=== PATIENT | female | born 1955 | race Caucasian/White ===

== ENCOUNTER 2024-11-19 03:38 | Inpatient (IN) ==
--- NOTE | 2024-11-19 03:58 | ED Physician Documentation ---
History of Present Illness Stated complaint Stated Complaint: SYNCOPE, N/V/D, LEFT ARM INJURY Chief complaint Chief Complaint: Neuro History obtained from History obtained from: Patient Additonal information Additional information: Patient is a 69-year-old female, history of renal transplant for polycystic kidney disease 2 years ago with [facility]. She states that she started feeling unwell yesterday afternoon. The count to have chills throughout the day. Then developed nausea, vomiting, diarrhea about 6 hours prior to arrival. During the events of vomiting and diarrhea she tried to stand up and felt lightheaded and dizzy and fell back to the floor. Unsure if she lost consciousness or not. This occurred x 2 during the worst part of the vomiting and diarrhea. No chest pain. No shortness of breath. She states initially she had some slight pain in the left shoulder but does not have any pain currently. She states she did hit her head on the floor but is not on blood thinners. She states that she is on medications for the renal transplant including prednisone, mycophenolate. Patient states that she did have a fever earlier, when EMS took her temperature it was normal. Review of Systems Constitutional Reports: Chills Ears, nose, mouth, and throat Denies: Neck pain Cardiovascular Denies: chest pain Respiratory Denies: Cough or Wheezing Gastrointestinal Reports: Abdominal pain (Mild, crampy abdominal pain), Nausea and Vomiting; Denies: Champ blood emesis, Coffee grounds in vomit, Melena or Blood in stool Genitourinary Denies: Painful urination, Urinary frequency or Urinary urgency Musculoskeletal Denies: Back pain or Neck pain Integumentary/Breast Denies: Rash Allergic/Immunologic Denies: Wheezing Meds/Allgy Allergies Allergies Allergy/AdvReac Type Severity Reaction Status Date / Time acetaminophen (From Percocet) Allergy Intermediate Nausea Verified 11/19/24 03:54 aspirin (From Percodan) Allergy Intermediate Nausea Verified 11/19/24 03:54 oxycodone (From Percodan) Allergy Intermediate Nausea Verified 11/19/24 03:54 diazepam AdvReac Mild Unknown Verified 11/19/24 03:54 morphine AdvReac Mild Hives Verified 11/19/24 03:54 [facility] Active Problems All Active Problems (Updated 11/19/24 @ 06:25 by Mj Mitchell MD) Syncope (Acute) Diarrhea (Acute) Vomiting (Acute) Acute kidney injury (Acute) History of kidney transplant (Acute) Surgical History Surgical History (Updated 11/19/24 @ 06:25 by Mj Mitchell MD) Kidney transplant recipient Social History Social History Do you feel safe in your home environment?: Yes History of physical, verbal, emotional, or financial abuse?: No Exam Exam Vital Signs: Vital Signs x48h Temp Pulse Resp BP Pulse Ox 11/19/24 06:39 36.5 C 75 20 106/66 97 11/19/24 05:45 71 20 110/71 94 11/19/24 04:46 74 20 120/68 97 11/19/24 03:46 36.7 C 77 18 98/57 L 94 Constitutional normal general appearance and no apparent distress HENMT normocephalic, head/scalp atraumatic and TMs normal bilaterally Eyes PERRL and EOMs intact bilaterally Neck/C-Spine visual inspection normal, trachea midline, cervical spine nontender and cervical full ROM noted No tenderness to palpation or percussion. No step-off or deformity. Chest inspection of chest normal and palpation of chest normal Respiratory breath sounds equal bilaterally, normal respiratory effort and clear to auscultation bilaterally Cardiovascular normal heart rate noted and regular rhythm noted Gastrointestinal abdomen normal to inspection, abdomen soft to palpation, nontender to palpation, nontender to percussion and nondistended Genitourinary no CVA tenderness Back/Pelvis spine normal to inspection, no thoracic spine tenderness and no lumbar spine tenderness No tenderness to palpation or percussion. No step-off or deformity over the thoracolumbar spine Extremities normal to inspection, no tenderness, full ROM and no deformity Neurology dry cleaning manager II-XII intact and GCS 15 Psychiatry mental status grossly normal and oriented x3 Skin skin color normal Results Vitals Vitals: Vital Signs - 24 hr 11/19/24 03:46 11/19/24 04:46 11/19/24 05:45 Temperature 36.7 C Temperature Source Tympanic Pulse Rate 77 74 71 Respiratory Rate 18 20 20 Blood Pressure 98/57 L 120/68 110/71 O2 Saturation 94 97 94 O2 Source Room air Room air Room air Pain Intensity 0 11/19/24 06:39 Temperature 36.5 C Temperature Source Temporal Artery Scan Pulse Rate 75 Respiratory Rate 20 Blood Pressure 106/66 O2 Saturation 97 O2 Source Room air Pain Intensity Oxygen O2 Source Room air EKG (time done) 0408: EKG releavant findings:: EKG personally interpreted by author of this note. Relevant findings are: Rate: Other ([address] interval, normal QRS, normal ST segments. Normal EKG) Labs Labs: Laboratory Tests 11/19/24 11/19/24 03:44 04:02 WBC 20.2 H RBC 3.36 L Hgb 10.7 L Hct 32.1 L MCV 95.5 MCH 31.8 H MCHC 33.3 RDW 12.2 Plt Count 121 L MPV 11.6 H Neut # (Auto) Not Reportable Lymph # (Auto) Not Reportable Blackford # (Auto) Not Reportable Eos # (Auto) Not Reportable Baso # (Auto) Not Reportable Absolute Nucleated RBC Not Reportable Total Counted 100 Band Neuts % (Manual) 20 H Abnorm Lymph % (Manual) 0 Metamyelocytes % 1 H Myelocytes % 1 H Nucleated RBC % Not Reportable Neutrophils # (Manual) 17.4 H Lymphocytes # (Manual) 1.0 L Monocytes # (Manual) 1.4 H Eosinophils # (Manual) 0.0 Basophils # (Manual) 0.0 Differential Comment MANUAL DIFFERENTIAL WBC Morphology NORMAL APPEARANCE Platelet Estimate DECREASED (<130,000) Platelet Morphology NORMAL APPEARANCE RBC Morph Micro Appear NORMAL APPEARANCE Sodium 135 Potassium 5.0 H Chloride 105 Carbon Dioxide 23 Anion Gap 7.0 BUN 30 H Creatinine 2.1 H Estimated GFR (MDRD) 23 L Glucose 108 H Calcium 8.8 Total Bilirubin 1.9 H AST 19 ALT 14 Alkaline Phosphatase 25 L Troponin I High Sens 5.3 Total Protein 5.8 L Albumin 3.7 Globulin 2.1 Albumin/Globulin Ratio 1.8 Lipase 15 Nasal Adenovirus (PCR) NOT DETECTED Nasal B. parapertussis DNA (PCR) NOT DETECTED Nasal Coronavir 229E PCR NOT DETECTED Nasal Coronavir HKU1 PCR NOT DETECTED Nasal Coronavir NL63 PCR NOT DETECTED Nasal Coronavir OC43 PCR NOT DETECTED Nasal Enterovir/Rhinovir PCR NOT DETECTED Nasal Influenza B PCR NOT DETECTED Nasal Influenza A PCR NOT DETECTED Nasal Parainfluen 1 PCR NOT DETECTED Nasal Parainfluen 2 PCR NOT DETECTED Nasal Parainfluen 3 PCR NOT DETECTED Nasal Parainfluen 4 PCR NOT DETECTED Nasal RSV (PCR) NOT DETECTED Nasal B.pertussis DNA PCR NOT DETECTED Nasal C.pneumoniae (PCR) NOT DETECTED Alberto Human Metapneumo PCR NOT DETECTED Nasal M.pneumoniae (PCR) NOT DETECTED Nasal SARS-CoV-2 (PCR) NOT DETECTED Rads (name of study) head ct, cxr: Relevant Findings:: Final report received PD Medical Decision Making ED course Complexity details: reviewed results, re-evaluated patient, considered differential and d/w patient ED course: No acute findings on chest x-ray or head CT. Has a significantly elevated white blood cell count of over 20,000. Could be reactive to a viral gastroenteritis, but she is continuing to have some abdominal pain, therefore a CT scan was ordered, noncontrast due to her acute kidney injury with a transplanted kidney. This is pending at the time of signout. Once the CT has been read by radiology, the plan will be to contact the [facility] for consultation as she is less than 2 years from her renal transplant with an acute kidney injury, likely secondary to dehydration and her recent illness. She received 2 L of IV fluid here. Awaiting a urinalysis as well. Respiratory PCR is negative. Patient will be signed out to Dr. Goel for follow-up of these tests and consultation with nephrology. Discharge Plan Discharge Clinical Impression: History of kidney transplant, Acute kidney injury Vomiting Qualifiers: Vomiting type: unspecified Nausea presence: with nausea Qualified Code(s): R11.2 - Nausea with vomiting, unspecified Diarrhea Qualifiers: Diarrhea type: unspecified type Qualified Code(s): R19.7 - Diarrhea, unspecified Syncope Qualifiers: Syncope type: unspecified Qualified Code(s): R55 - Syncope and collapse Print Language: Micronesian Stand Alone Forms: PCP List
[2024-11-19] MEDS: SODIUM CHLORIDE 0.9% 1,000 ML IV STA ×2 (04:07→05:09)
[2024-11-19 04:08] LABS: RED CELL DISTRIBUTION WIDTH 12.2 % (12.0-15.0)
[2024-11-19 04:13] LABS: HCT - HEMATOCRIT 32.1 % (37.0-47.0); HGB - HEMOGLOBIN 10.7 g/dL (12.0-16.0); MEAN PLATELET VOLUME 11.6 fL (7.9-10.8)
[2024-11-19 04:16] LABS: PLT - PLATELET COUNT 121 10^3/uL (130-450)
[2024-11-19 04:18] LABS: ABNORMAL LYMPHS % (MANUAL) 0 %; BASOPHILS # (MANUAL) 0.0 10^3/uL (0-0.1); EOSINOPHILS # (MANUAL) 0.0 10^3/uL (0-0.7)
[2024-11-19 04:24] LABS: ALT ALANINE AMINOTRANSFERASE 14.0 IU/L (10-60); AST ASPARTATE AMINOTRANSFERASE 19.0 IU/L (10-42); BUN - BLOOD UREA NITROGEN 30.0 mg/dL (6-20); CARBON DIOXIDE - CO2 23.0 mmol/L (21-32); CREATININE 2.1 mg/dL (0.6-1.3); GFR - MDRD 23.0 (>89)
[2024-11-19 04:28] LABS: TROPONIN I HIGH SENSITIVITY 5.3 ng/L (2.3-14.8)
[2024-11-19 04:44] LABS: BAND NEUTROPHILS % (MANUAL) 20 %; LYMPHOCYTES # (MANUAL) 1.0 10^3/uL (1.5-3.5); LYMPHOCYTES % (MANUAL) 5 %; METAMYELOCYTES % (MANUAL) 1 %; MONOCYTES # (MANUAL) 1.4 10^3/uL (0.0-1.0); MYELOCYTES % (MANUAL) 1 %; NEUTROPHILS # (MANUAL) 17.4 10^3/uL (1.5-6.6); PLATELET ESTIMATE, MANUAL DECREASED (<130,000) (NORMAL); PLATELET MORPHOLOGY NORMAL APPEARANCE (NORMAL); RBC MORPHOLOGY (MULTIPLE) NORMAL APPEARANCE (NORMAL); WBC MORPHOLOGY (MULTIPLE) NORMAL APPEARANCE (NORMAL)
[2024-11-19 05:00] LABS: B. PARAPERTUSSIS- RESP PCR PAN NOT DETECTED; B. PERTUSSIS- RESP PCR PANEL NOT DETECTED; C. PNEUMONIAE- RESP PCR PANEL NOT DETECTED; CORONAVIRUS 229E-RESP PCR NOT DETECTED; CORONAVIRUS HKU1-RESP PCR NOT DETECTED; CORONAVIRUS NL63-RESP PCR NOT DETECTED; CORONAVIRUS OC43-RESP PCR NOT DETECTED; HUMAN METAPNEUMOVIRUS NOT DETECTED; INFLUENZA A- RESP PCR PANEL NOT DETECTED; INFLUENZA B - RESP PCR PANEL NOT DETECTED; M. PNEUMONIAE- RESP PCR PANEL NOT DETECTED; PARAINFLUENZA VIRUS 1 NOT DETECTED; PARAINFLUENZA VIRUS 2 NOT DETECTED; PARAINFLUENZA VIRUS 4 NOT DETECTED; RHINOVIRUS/ENTEROVIRUS NOT DETECTED; RSV- RESP PCR PANEL NOT DETECTED; SARS-CoV-2 -RESP PCR PANEL NOT DETECTED
--- NOTE | 2024-11-19 07:11 | ED Physician Documentation ---
ED Addendum Addendum Addendum: Patient was handed off to me at [address] Chaka Mitchell. Briefly this is a six 9-year-old female with history of polycystic kidney disease and renal transplant roughly 2 years ago. Presented with multiple days of nausea, vomiting, diarrhea. Was unable to take antirejection medications for a few doses over the last couple days as a result of this. Workup today with normal UA. Elevated white count to 20, and new FARA from baseline of 1.3 to 2.1. Eventually I was able to talk to [facility] nephrology, who recommended mission here at our hospital, with transfer to their facility if she tends to go into her worst direction. They felt that given story likely prerenal in setting of viral gastroenteritis. Patient was admitted to the floor during my shift, and boarding at time of my signout. Handed off to Dr. Jasbir Mcpherson. Discharge Plan Discharge Patient Disposition: 68 [facility] DC/Xfer Condition: Good Clinical Impression: History of kidney transplant, Acute kidney injury Vomiting Qualifiers: Vomiting type: unspecified Nausea presence: with nausea Qualified Code(s): R11.2 - Nausea with vomiting, unspecified Diarrhea Qualifiers: Diarrhea type: unspecified type Qualified Code(s): R19.7 - Diarrhea, unspecified Syncope Qualifiers: Syncope type: unspecified Qualified Code(s): R55 - Syncope and collapse Prescriptions: No Action tacrolimus [Prograf] 1 mg capsule 2 mg PO Q12H tacrolimus [Prograf] 0.5 mg capsule 0.5 mg PO Q12H mycophenolate sodium [Myfortic] 360 mg tablet,delayed release (DR/EC) 720 mg PO BID prednisone 5 mg tablet 5 mg PO DAILY sulfamethoxazole-trimethoprim [Bactrim] 400-80 mg tablet 1 tab PO DAILY valganciclovir 450 mg PO BID famotidine 20 mg tablet 20 mg PO BID hydromorphone 2 mg tablet 2 mg PO ONCE PRN (Reason: as needed for moderate or severe pain) polyethylene glycol 3350 [ClearLax] 17 gram/dose powder 17 g PO DAILY PRN (Reason: constipation) sennosides-docusate sodium [Colace 2-In-1] 8.6-50 mg tablet 1 tab-cap PO DAILY calcium citrate-vitamin D2 315 mg-200 unit tablet 1 tab PO BID citalopram [Celexa] 20 mg tablet 20 mg PO DAILY magnesium oxide 400 mg magnesium capsule 400 mg PO DAILY biotin 10,000 mcg capsule 10,000 mcg PO DAILY propranolol 10 mg tablet 10 mg PO BID folic acid 1 mg tablet 1 mg PO DAILY Print Language: Macedonian
--- NOTE | 2024-11-19 07:46 | CT Report ---
PROCEDURE: CT Abdomen/Pelvis WO INDICATIONS: abd pain, vomiting TECHNIQUE: A CT scan of the abdomen and pelvis was performed without the use of intravenous contrast. Images were recorded and evaluated at appropriate window settings. Reformats: coronal and sagittal. For radiation dose reduction, the following was used: automated exposure control, adjustment of mA and/or kV according to patient size. COMPARISON: None. FINDINGS: Image quality: Diagnostic. Lower chest: Dependent atelectasis are noted in bilateral lung bases. Heart size is enlarged. No significant pericardial effusion. Liver: No innumerable well-circumscribed hypodense areas are seen scattered throughout the liver parenchyma and measures fluid density likely represent hepatic cysts. No definite solid appearing hepatic lesions. Gallbladder: Gallbladder is surgically absent. Biliary tree: No intrahepatic or extrahepatic dilation, accounting for age. Spleen: No splenomegaly. Pancreas: No pancreatic ductal dilation. Adrenals: No adrenal nodule. Kidneys and ureters: Numerous cysts are noted scattered throughout bilateral renal parenchyma suggestive of polycystic kidney disease. Few scattered calcifications are noted in bilateral renal parenchyma suggestive of nonobstructing stones versus vascular calcifications. Underlying solid lesion cannot be entirely excluded. No hydronephrosis or obstructing stones. No hydroureter. Transplant kidney is noted in left iliac fossa and show no hydronephrosis or gross solid appearing renal lesion. Stomach, bowel and peritoneum: There is no bowel obstruction. Liquid stool is noted within the colon and is consistent with the clinical history of diarrhea. No abnormal bowel wall thickening or mesenteric fat stranding. Colonic diverticulosis without CT evidence of acute diverticulitis. No abscess col lection. No free fluid or free air. Lymph nodes: No central or retroperitoneal adenopathy. Vessels: No infrarenal aortic aneurysm. Reproductive organs: Unremarkable. Bladder: No abnormal bladder wall thickening. No calcified bladder stones. Pelvic lymph nodes: No adenopathy by size criteria. Bones: No aggressive osseous abnormality. Other: No significant ventral or inguinal hernia. IMPRESSION: 1. Findings consistent with polycystic kidney disease with transplant kidney in left lower quadrant. No obstructing stones or hydronephrosis. No definite solid- appearing renal lesion. 2. Numerous cysts are seen scattered in the liver parenchyma. No obvious solid appearing hepatic lesion. 3. Liquid stool which is consistent with clinical history of diarrhea. No bowel obstruction or abnormal bowel wall thickening. No free fluid or free air. 4. Other chronic incidental findings as above. No significant discrepancies from preliminary reading. Reviewed by: Lewis Patricio MD on 11/19/2024 7:43 AM PDT Approved by: Lewis Patricio MD on 11/19/2024 7:43 AM PDT Station ID: [id number]
--- NOTE | 2024-11-19 07:47 | CT Report ---
PROCEDURE: CT Head WO INDICATIONS: fall, head injury TECHNIQUE: CT of the head was performed, without intravenous contrast. Reformats: Coronal and sagittal. For radiation dose reduction, the following was used: automated exposure control, adjustment of mA and/or kV according to patient size. COMPARISON: None. FINDINGS: Image quality: Diagnostic. CSF spaces: Basal cisterns are patent. No extra-axial fluid collections. Ventricles are normal in size and shape. Brain: No midline shift. No intracranial mass effect or hemorrhage. Mast- white matter interface is normal. Age appropriate volume loss and periventricular white matter hypoattenuation, likely chronic ischemic change. Skull and face: Calvarium and visualized facial bones are intact, without suspicious lesions. Sinuses: Visualized sinuses and mastoids are clear. IMPRESSION: No acute intracranial pathology. Findings are concordant with preliminary interpretation provided by [facility]. Reviewed by: Lewis Patricio MD on 11/19/2024 7:44 AM PDT Approved by: Lewis Patricio MD on 11/19/2024 7:44 AM PDT Station ID: [id number]
--- NOTE | 2024-11-19 08:04 | XRAY Report ---
PROCEDURE: XR Chest 1V INDICATIONS: Chest Pain TECHNIQUE: One view of the chest was acquired. COMPARISON: None. FINDINGS: Surgical changes and devices: None. Lungs and pleura: No pleural effusions or pneumothorax. No consolidation. Mediastinum: Mediastinal contours appear normal. Heart size is normal. Bones and chest wall: No suspicious bony lesions. Overlying soft tissues appear unremarkable. IMPRESSION: No acute cardiopulmonary process. Findings are concordant with preliminary interpretation provided by [facility]. Reviewed by: Monty Pichardo MD on 11/19/2024 8:00 AM PDT Approved by: Monty Pichardo MD on 11/19/2024 8:00 AM PDT Station ID: [id number]
[2024-11-19 10:54] LABS: GLUCOSE, URINE (UA) NEGATIVE (NEGATIVE); KETONES,URINE (UA) NEGATIVE (NEGATIVE); OCCULT BLOOD,URINE NEGATIVE (NEGATIVE)
[2024-11-19] MEDS ORDERED: ONDANSETRON 4 MG/2 ML VIAL IVP PRN (16:29)
[2024-11-19] MEDS ORDERED: ONDANSETRON ODT 4 MG TABLET TL PRN (16:29)
--- NOTE | 2024-11-19 17:00 | HISTORY & PHYSICAL EXAMINATION ---
Chief Complaint Chief Complaint Chief Complaint: Nausea, vomiting, diarrhea History of Present Illness Admitted From Admitted From:: Home History Obtained From Records Reviewed: EMR History obtained from: Patient Exam Limitations: None History of Present Illness HPI Comment/Other: Patient is a 69-year-old female with a history of polycystic kidney disease s/p donor transplant completed in 2022 who presents for intractable nausea, vomiting, diarrhea. Per patient, and patient's daughter at bedside, she was at home, and started having episodes of his loose, watery stool. She also had an episode of nausea, and 2 episodes of nonbloody, nonbilious emesis. She describes the stool as watery, and she feels as if she has no control over it. The only time this has ever happened in the past, was immediately after her renal transplant when she had COVID. After these episodes diarrhea, she felt lightheaded, dizzy, and had a syncopal episode. Prior to the EMS getting there, she had another episode of syncope. She endorses dizziness and lightheadedness prior to her passing out. She does not recall eating anything out of the ordinary. Her family ate the same things, and have not had any symptoms. Past medical history is only significant for polycystic kidney disease with a donor transplant that occurred in 2022. Medications include mycophenolate, prednisone, tacrolimus. Allergies include hives to morphine. Surgical history includes renal transplant. Social history includes occasional alcohol use. No tobacco use, no recreational drug use. Lives with her daughter. Recently retired, worked at a bank for many years. In the ER, patient had a soft blood pressure here -blood pressure was 98/57, heart rate was 77, she was afebrile, saturating 94% on room air. Her heart rate was 77. Lab work showed a leukocytosis of 20.2. Her hemoglobin was 10.7. Her creatinine was elevated at 2.1, and her baseline is usually normal. Her UA was negative for any infection. Respiratory viral panel was also negative for any infection. C. difficile was negative. Meds/Allgy Home Medications Ambulatory Orders Medication Instructions Recorded Confirmed biotin 10,000 mcg capsule 10,000 mcg PO DAILY 11/19/24 11/19/24 calcium 315 mg (as 1 tab PO BID 11/19/24 citrate)-ergocalciferol (vit D2) 200 unit tablet citalopram 20 mg tablet (Celexa) 20 mg PO DAILY 11/19/24 famotidine 20 mg tablet 20 mg PO BID 11/19/24 folic acid 1 mg tablet 1 mg PO DAILY 11/19/2411/19 magnesium oxide 400 mg PO DAILY 11/19/24 mycophenolate sodium 180 mg 180 mg PO BID 11/19/24 tablet,delayed release prednisone 5 mg tablet 5 mg PO DAILY 11/19/2411/19 propranolol 10 mg tablet 10 mg PO BID 11/19/24 sulfamethoxazole 400 1 tab PO DAILY 11/19/2410/29 mg-trimethoprim 80 mg tablet (Bactrim) Held on 11/19/24. Instructions: Per Patient tacrolimus 0.5 mg capsule, 0.5 mg PO Q12H 11/19/24 immediate-release (Prograf) tacrolimus 1 mg capsule, 2 mg PO Q12H 11/19/24 immediate-release (Prograf) valganciclovir 450 mg PO BID 11/19/2411/19 Held on 11/19/24. Instructions: Per Patient Allergies Allergies Allergy/AdvReac Type Severity Reaction Status Date / Time acetaminophen (From Percocet) Allergy Intermediate Nausea Verified 11/19/24 03:54 aspirin (From Percodan) Allergy Intermediate Nausea Verified 11/19/24 03:54 oxycodone (From Percodan) Allergy Intermediate Nausea Verified 11/19/24 03:54 diazepam AdvReac Mild Unknown Verified 11/19/24 03:54 morphine AdvReac Mild Hives Verified 11/19/24 03:54 PFSH Active Problems All Active Problems Viral gastroenteritis (Acute) Syncope (Acute) Diarrhea (Acute) Vomiting (Acute) Acute kidney injury (Acute) History of kidney transplant (Acute) Surgical History Surgical History Kidney transplant recipient Social History Social History Smoking Status: Never smoker Second hand tobacco smoke exposure: Yes Do you dip or chew tobacco?: No Do you vape?: No Level: Independent Do you feel safe in your home environment?: Yes History of physical, verbal, emotional, or financial abuse?: No POLST Patient has POLST: No POLST CPR Status: Attempt Resuscitation (CPR) Level of Medical Intervention: Full Treatment Review of Systems Constitutional Reports: Chills, Weakness and Poor appetite; Denies: Fatigue, Fever or Malaise Eyes Denies: Pain, Irritation, Blurry vision, Vision loss, Diplopia or Eye discomfort Ears, nose, mouth, and throat Denies: Ear pain, Hearing loss, Tinnitus, Nose bleeds or Nasal discharge Cardiovascular Reports: Syncope; Denies: Irregular heart rate, chest pain, palpitations, edema or shortness of breath with exertion Respiratory Denies: Shortness of breath, Cough, Sputum production or Wheezing Gastrointestinal Reports: Abdominal pain, Nausea, Vomiting, Diarrhea, Change in bowel habits and Change in stool character; Denies: Abdominal distention, Heartburn or Constipation Genitourinary Denies: Painful urination, Urinary frequency or Urinary urgency Musculoskeletal Denies: Back pain Integumentary/Breast Denies: Rash, Itching, Dryness, Redness or Skin pain Neurological Reports: General weakness and Dizziness; Denies: Headache, Weakness in extremities, Numbness in extremities or Abnormal gait Psychiatric Denies: Depression, Anxiety, Mood swings or Panic attacks Endocrine Denies: Excessive urination, Excessive thirst or Fatigue Hematologic/Lymphatic Denies: Anemia, Easy bruising or Easy bleeding Allergic/Immunologic Denies: Hives, Tongue swelling, Facial swelling or Wheezing Prior Level of Functionality: Independent of ADLs. Exam Exam Vital Signs: Vital Signs x48h Temp Pulse Resp BP Pulse Ox 11/20/24 13:00 97.9 F 58 L 14 125/65 97 11/20/24 07:34 98.6 F 61 16 129/75 96 Constitutional normal general appearance, no apparent distress, average body habitus and no limitations HENMT normocephalic, head/scalp atraumatic and hearing grossly normal bilaterally Eyes PERRL, EOMs intact bilaterally and conjunctivae normal Neck/C-Spine visual inspection normal, trachea midline and cervical spine nontender Chest inspection of chest normal Respiratory breath sounds equal bilaterally, normal respiratory effort, clear to auscultation bilaterally, no wheezes, no rales and no retractions Cardiovascular normal heart rate noted, regular rhythm noted, no gallop, no rub and no murmur Gastrointestinal abdomen normal to inspection, abdomen soft to palpation and normoactive bowel sounds Mildly tender to palpation diffusely Genitourinary no CVA tenderness and bladder normal to palpation Back/Pelvis spine normal to inspection, no thoracic spine tenderness and no lumbar spine tenderness Extremities normal to inspection, normal to palpation, no tenderness and full ROM Neurology no movement abnormality noted and no focal motor deficit noted Psychiatry mental status grossly normal, oriented x3, thought process normal, cooperative and affect normal Skin skin color normal, no rash, no lesions and no wounds Conclusion/Plan Problem List (1) Viral gastroenteritis: Plan: Patient presents with less than 24 hours of nausea, vomiting, loose stools. Improving. Respiratory viral panel is negative. C. difficile is negative. Stool studies are ordered, pending. Patient does have a leukocytosis. Afebrile. Monitor off antibiotics at this time. Continue aggressive IV fluid rehydration with LR at 100 cc/h. Continue Zofran as needed for nausea. (2) Acute kidney injury: Plan: Likely prerenal due to GI losses. Creatinine baseline of 1.4. Currently at 2.1. ER did speak with transplant nephrology, and recommends admission here for observation and rehydration. If worsens, will call them once again. (3) Syncope: Plan: Likely vasovagal due to above. Patient has no cardiac history. Echo has been ordered, pending. Continue telemetry while here. Qualifiers: Syncope type: unspecified Qualified Code(s): R55 - Syncope and collapse (4) History of kidney transplant: Plan: Continue mycophenolate, prednisone, tacrolimus. Lab Results Lab results reviewed: Yes 11/20/24 07:43 11/20/24 07:43 Diagnostic Imaging Results Diagnostic Imaging Results: positive Final report reviewed EKG Results EKG Interpreted Independently: Yes Core Measures Anticipated LOS I expect patient to be DC'd or transferred within 96 hours.: Yes DVT/VTE - Prophylaxis VTE/DVT Device ordered at admit?: No VTE/DVT Prophylaxis med ordered at admit?: Yes
[2024-11-19] MEDS ORDERED: SODIUM CHLORIDE FLUSH 0.9% 10 ML SYRINGE IVP PRN (17:06)
[2024-11-19] MEDS ORDERED: ACETAMINOPHEN 325 MG TABLET PO PRN (17:06)
--- NOTE | 2024-11-19 17:21 | PHARMACY PROGRESS NOTE ---
Best Possible Medication History Admit Date and Time: 11/19/24 [id number] Home Medications Medication Instructions Recorded Confirmed Type biotin 10,000 mcg capsule 10,000 mcg PO DAILY 11/19/24 11/19/24 History calcium 315 mg (as 1 tab PO BID 11/19/24 History citrate)-ergocalciferol (vit D2) 200 unit tablet citalopram 20 mg tablet (Celexa) 20 mg PO DAILY 11/19/24 History famotidine 20 mg tablet 20 mg PO BID 11/19/24 History folic acid 1 mg tablet 1 mg PO DAILY 11/19/2411/19 History magnesium oxide 400 mg PO DAILY 11/19/24 History mycophenolate sodium 360 mg 720 mg PO BID 11/19/24 History tablet,delayed release (Myfortic) prednisone 5 mg tablet 5 mg PO DAILY 11/19/2411/19 History propranolol 10 mg tablet 10 mg PO BID 11/19/24 History sennosides 8.6 mg-docusate sodium 1 tab-cap PO DAILY 0 11/19/24 11/19/24 History 50 mg tablet (Colace 2-In-1) sulfamethoxazole 400 1 tab PO DAILY 11/19/2410/29 History mg-trimethoprim 80 mg tablet (Bactrim) Held on 11/19/24. Instructions: Per Patient tacrolimus 0.5 mg capsule, 0.5 mg PO Q12H 11/19/24 History immediate-release (Prograf) tacrolimus 1 mg capsule, 2 mg PO Q12H 11/19/24 History immediate-release (Prograf) valganciclovir 450 mg PO BID 11/19/2411/19 History Held on 11/19/24. Instructions: Per Patient Processed by: Pharmacy (Medication reconciliation completed by [employer]) Medications reviewed in ED?: Yes Medication History completed: Yes Patient Interview: Completed Secondary Source(s): Written medication list [facility] [place] Statement: As the person ultimately responsible for medication therapy, providers are able to order a medication from an existing home medication list in [facility] via the "Reconcile Routine" prior to Confirmation of that medication by lab support service tech. Such practice is discouraged except when the physician, in their clinical judgment, deems that a medical need exists for a medication without regard to previous use.
[2024-11-19] MEDS: TACROLIMUS 0.5 MG CAPSULE PO SCH ×2 (18:05→18:12)
[2024-11-19] MEDS: LACTATED RINGERS 1,000 ML IV SCH (18:05)
[2024-11-19] MEDS: SODIUM CHLORIDE FLUSH 0.9% 10 ML SYRINGE IVP SCH (18:06)
[2024-11-19] MEDS: PROPRANOLOL 10 MG TABLET PO SCH (20:11)
[2024-11-19] MEDS: FAMOTIDINE 20 MG TABLET PO SCH (20:11)
[2024-11-19] MEDS: HEPARIN 5,000 UNIT/ML VIAL SUBQ SCH (20:11)
[2024-11-19] MEDS: MYCOPHENOLATE 180 MG PO SCH (20:13)
[2024-11-19] MEDS ORDERED: VALGANCICLOVIR 450 MG PO SCH (21:00)
[2024-11-19] MEDS ORDERED: MYCOPHENOLATE SODIUM 180 MG PO SCH (21:00)
[2024-11-20] MEDS: MAGNESIUM OXIDE 400 MG TABLET PO SCH (07:35)
[2024-11-20 07:51] LABS: HCT - HEMATOCRIT 29.6 % (37.0-47.0); HGB - HEMOGLOBIN 9.9 g/dL (12.0-16.0); MEAN PLATELET VOLUME 11.1 fL (7.9-10.8); PLT - PLATELET COUNT 114.0 10^3/uL (130-450); RED CELL DISTRIBUTION WIDTH 12.4 % (12.0-15.0)
[2024-11-20 08:13] LABS: BUN - BLOOD UREA NITROGEN 21.0 mg/dL (6-20); CARBON DIOXIDE - CO2 24.0 mmol/L (21-32); CREATININE 1.5 mg/dL (0.6-1.3); GFR - MDRD 35.0 (>89)
[2024-11-20] MEDS ORDERED: SENNOSIDES DOCUSATE SODIUM PO SCH (09:00)
[2024-11-20] MEDS ORDERED: BIOTIN 10000 MCG PO SCH (09:00)
[2024-11-20] MEDS: CALCIUM CARB (OYSTER SHELL) 500 MG TABLET PO SCH (09:34)
[2024-11-20] MEDS: CITALOPRAM HYDROBROMIDE 20 MG TABLET PO SCH (09:34)
[2024-11-20] MEDS: CHOLECALCIFEROL 400 UNIT TABLET PO SCH (09:34)
[2024-11-20] MEDS: FOLIC ACID 1 MG TABLET PO SCH (09:34)
--- NOTE | 2024-11-20 12:25 | PROVIDER PROGRESS NOTE ---
Subjective Subjective Subjective: This morning, patient is doing to feel better. She is still having some loose stools, but she states they are decreasing in size and frequency. She denies any lightheaded or dizziness. She is tolerating p.o. intake well. She denies any nausea or vomiting. Diet: Regular Dispo: Home on discharge DVT: Heparin subq Code: Full code Current Medications Current Medications Current Medications: Current Medications Generic Name Dose Route Start Last Admin Trade Name Freq PRN Reason Stop Dose Admin Acetaminophen 650 mg 11/19/24 17:06 Acetaminophen 325 Mg Tablet PO Q4HR PRN Pain 1 to 4, or Fever Calcium Carbonate/Glycine 500 mg 11/20/24 09:00 11/20/24 09:34 Calcium Carb (Oyster Shell) 500 Mg Tablet PO 500 mg DAILY KACIE Administration Cholecalciferol 400 unit 11/20/24 09:00 11/20/24 09:34 Cholecalciferol 400 Unit Tablet PO 400 unit DAILY KACIE Administration Citalopram Hydrobromide 20 mg 11/20/24 09:00 11/20/24 09:34 Citalopram Hydrobromide 20 Mg Tablet PO 20 mg DAILY KACIE Administration Famotidine 20 mg 11/19/24 21:00 11/20/24 09:34 Famotidine 20 Mg Tablet PO 20 mg BID KACIE Administration Folic Acid 1 mg 11/20/24 09:00 11/20/24 09:34 Folic Acid 1 Mg Tablet PO 1 mg DAILY KACIE Administration Heparin Sodium (Porcine) 5,000 unit 11/19/24 21:00 11/20/24 09:34 Heparin 5,000 Unit/Ml Vial SUBQ 5,000 unit BID KACIE Administration Lactated Ringer's 1,000 mls @ 100 mls/hr 11/19/24 17:06 11/20/24 03:45 Lr IV 100 mls/hr .Q10H KACIE Administration Magnesium Oxide 400 mg 11/20/24 08:00 11/20/24 07:35 Magnesium Oxide 400 Mg Tablet PO 400 mg DAILYWM KACIE Administration Ondansetron HCl 4 mg 11/19/24 16:29 Ondansetron Odt 4 Mg Tablet TL Q8HR PRN nausea Ondansetron HCl 4 mg 11/19/24 16:29 Ondansetron 4 Mg/2 Ml Vial IVP Q6HR PRN Nausea Mycophenolate 180mg 1 each 11/19/24 21:00 11/20/24 09:38 Dr Tablet PO 1 each BID KACIE Administration Polyethylene Glycol 17 gm 11/19/24 17:26 Polyethylene Glycol 3350 17 Gm Packet PO DAILY PRN constipation Prednisone 5 mg 11/20/24 09:00 11/20/24 09:34 Prednisone 5 Mg Tablet PO 5 mg DAILY KACIE Administration Propranolol HCl 10 mg 11/19/24 21:00 11/20/24 09:34 Propranolol 10 Mg Tablet PO 10 mg BID KACIE Administration Sodium Chloride 10 ml 11/19/24 17:06 Sodium Chloride Flush 0.9% 10 Ml Syringe IVP PRN PRN NEEDED PER PROVIDER ORDERS Sodium Chloride 10 ml 11/19/24 17:06 11/20/24 09:34 Sodium Chloride Flush 0.9% 10 Ml Syringe IVP 10 ml 0100,0900,1700 KACIE Administration Tacrolimus 2.5 mg 11/19/24 17:06 11/20/24 07:35 Tacrolimus 0.5 Mg Capsule PO 2.5 mg Q12H KACIE Administration Objective Vital Signs/Intake & Output Reviewed Vital Signs: Yes Vital Signs: Vital Signs x48h Temp Pulse Resp BP Pulse Ox 11/20/24 07:34 98.6 F 61 16 129/75 96 11/20/24 05:17 98.6 F 60 18 118/68 97 Intake & Output: Intake & Output 11/17/24 11/18/24 11/19/24 11/20/24 23:59 23:59 23:59 23:59 Intake Total 2580 / 2580 1087 / 1087 Balance 2580 / 2580 1087 / 1087 Weight (kg) 76 kg Objective General Appearance: positive No acute distress and Alert; negative Anxious Eyes Bilateral: positive Normal inspection, PERRL and EOMI ENT: positive ENT inspection nml, Pharynx nml and No signs of dehydration Neck: positive Nml inspection, Thyroid nml and No JVD Respiratory: positive Chest non-tender, No respiratory distress and Breath sounds nml; negative Wheezes, Rales or Rhonchi Cardiovascular: positive Regular rate & rhythm, No murmur and No gallop; negative Tachycardia or Systolic murmur Abdomen: positive Non-tender, No organomegaly and No distention; negative Guarding or Splenomegaly Back: positive Nml inspection; negative CVA tenderness (R) or CVA tenderness (L) Skin: positive Color nml, No rash, Warm and Dry Extremities: positive Non-tender, Full ROM, Nml appearance and No pedal edema Neurologic/Psychiatric: positive Oriented x3, Motor nml and Mood/affect nml Lab Results 11/20/24 07:43 11/20/24 07:43 Other Labs: Lab Results x24hrs 11/20/24 Range/Units 07:43 WBC 13.1 H (4.8-10.8) x10^3/uL RBC 3.08 L (4.20-5.40) 10^6/uL Hgb 9.9 L (12.0-16.0) g/dL Hct 29.6 L (37.0-47.0) % MCV 96.1 (81.0-99.0) fL MCH 32.1 H (27.0-31.0) pg MCHC 33.4 (32.0-36.0) g/dL RDW 12.4 (12.0-15.0) % Plt Count 114 L (130-450) 10^3/uL MPV 11.1 H (7.9-10.8) fL Sodium 139 (135-145) mmol/L Potassium 3.9 (3.5-4.5) mmol/L Chloride 110 (101-111) mmol/L Carbon Dioxide 24 (21-32) mmol/L Anion Gap 5.0 L (6-13) BUN 21 H (6-20) mg/dL Creatinine 1.5 H (0.6-1.3) mg/dL Estimated GFR (MDRD) 35 L (>89) Glucose 91 (74-104) mg/dL Calcium 8.8 (8.5-10.3) mg/dL Assessment/Plan Problem List (1) Viral gastroenteritis: Impression: Patient presents with less than 24 hours of nausea, vomiting, loose stools. Improving. Respiratory viral panel is negative. C. difficile is negative. Stool studies are ordered, pending. Patient did have a leukocytosis which is improving without antibioitcs. Afebrile. Continue to monitor off antibiotics at this time. Continue aggressive IV fluid rehydration with LR at 100 cc/h. Continue Zofran as needed for nausea. (2) Acute kidney injury: Impression: Likely prerenal due to GI losses. Creatinine when last checked was 1.4 in September. Admitted with creatinine of 2.1. With ongoing GI losses, and concern for worsening dehydration, patient will need 24 hours more of IVF and rehydration. ER did speak with transplant nephrology, and recommends admission here for observation and rehydration. If worsens, will call them once again. (3) Syncope: Impression: Likely vasovagal due to above. Patient has no cardiac history. Echo has been ordered, pending. Continue telemetry while here. Qualifiers: Syncope type: unspecified Qualified Code(s): R55 - Syncope and collapse (4) History of kidney transplant: Impression: DDA in 2022 due to polycystic kidney disease. Continue mycophenolate, prednisone, tacrolimus.
[2024-11-20] MEDS: TACROLIMUS 0.5 MG CAPSULE PO SCH (20:14)
[2024-11-21 06:29] LABS: HCT - HEMATOCRIT 30.0 % (37.0-47.0); HGB - HEMOGLOBIN 9.8 g/dL (12.0-16.0); MEAN PLATELET VOLUME 11.7 fL (7.9-10.8); PLT - PLATELET COUNT 112.0 10^3/uL (130-450); RED CELL DISTRIBUTION WIDTH 12.0 % (12.0-15.0)
[2024-11-21 06:45] LABS: BUN - BLOOD UREA NITROGEN 14.0 mg/dL (6-20); CARBON DIOXIDE - CO2 25.0 mmol/L (21-32); CREATININE 1.3 mg/dL (0.6-1.3); GFR - MDRD 41.0 (>89)
--- NOTE | 2024-11-21 08:13 | Discharge Summary ---
Discharge Summary Admit Date: 11/19/24 Discharge Date: 11/21/24 Discharging Provider: Dr. Beverly Watts Code Status: Attempt Resuscitation Discharge Facility Name: Home, Self Care DIAGNOSES Discharge Diagnoses with Status of Each Condition: Viral gastroenteritispatient presented with less than 24 hours of nausea, vomiting, loose stools. Respiratory viral panel negative, C. difficile negative. Stool studies remain pending. Presented with leukocytosis, which is now resolved. Diarrhea is also resolving; she has had just a couple, which are more formed. Advised to continue adequate oral hydration at home. Acute kidney injuryresolved. Admitted with a creatinine of 2.1, baseline was around 1.4. This is likely prerenal due to dehydration. After 2 days of adequate IV rehydration, back to baseline is at 1.3. Syncopelikely vasovagal due to above. History of kidney transplantDDA in 2022 due to polycystic kidney disease. Continue mycophenolate, prednisone, tacrolimus. HPI History of Present Illness: Patient is a 69-year-old female with a history of polycystic kidney disease s/p donor transplant completed in 2022 who presents for intractable nausea, vomiting, diarrhea. Per patient, and patient's daughter at bedside, she was at home, and started having episodes of his loose, watery stool. She also had an episode of nausea, and 2 episodes of nonbloody, nonbilious emesis. She describes the stool as watery, and she feels as if she has no control over it. The only time this has ever happened in the past, was immediately after her renal transplant when she had COVID. After these episodes diarrhea, she felt lightheaded, dizzy, and had a syncopal episode. Prior to the EMS getting there, she had another episode of syncope. She endorses dizziness and lightheadedness prior to her passing out. She does not recall eating anything out of the ordinary. Her family ate the same things, and have not had any symptoms. Past medical history is only significant for polycystic kidney disease with a donor transplant that occurred in 2022. Medications include mycophenolate, prednisone, tacrolimus. Allergies include hives to morphine. Surgical history includes renal transplant. Social history includes occasional alcohol use. No tobacco use, no recreational drug use. Lives with her daughter. Recently retired, worked at a bank for many years. In the ER, patient had a soft blood pressure here -blood pressure was 98/57, heart rate was 77, she was afebrile, saturating 94% on room air. Her heart rate was 77. Lab work showed a leukocytosis of 20.2. Her hemoglobin was 10.7. Her creatinine was elevated at 2.1, and her baseline is usually normal. Her UA was negative for any infection. Respiratory viral panel was also negative for any infection. C. difficile was negative. HOSPITAL COURSE Hospital Course: Patient is a 69-year-old female with a history of polycystic kidney disease s/p donor allograft who presents with intractable nausea and vomiting and diarrhea over the past 24 hours. When admitted, her creatinine was elevated 2.1, and her baseline is around 1.4. She received 2 days of IV hydration, and her creatinine improved to 1.3. After one day of IV hydration, she was still not tolerating p.o. intake well, and was unable to keep things down. Her nausea and vomiting has completely improved. She is tolerating p.o. intake well. She has close follow-up with her primary care provider, as well as her nephrology already scheduled. Plan is to discharge her home. ALLERGIES Allergies Allergy/AdvReac Type Severity Reaction Status Date / Time acetaminophen (From Percocet) Allergy Intermediate Nausea Verified 11/19/24 03:54 aspirin (From Percodan) Allergy Intermediate Nausea Verified 11/19/24 03:54 oxycodone (From Percodan) Allergy Intermediate Nausea Verified 11/19/24 03:54 diazepam AdvReac Mild Unknown Verified 11/19/24 03:54 morphine AdvReac Mild Hives Verified 11/19/24 03:54 MEDICATIONS Ambulatory Orders Medication Instructions Recorded Confirmed biotin 10,000 mcg capsule 10,000 mcg PO DAILY 11/19/24 11/19/24 calcium 315 mg (as 1 tab PO BID 11/19/24 citrate)-ergocalciferol (vit D2) 200 unit tablet citalopram 20 mg tablet (Celexa) 20 mg PO DAILY 11/19/24 famotidine 20 mg tablet 20 mg PO BID 11/19/24 folic acid 1 mg tablet 1 mg PO DAILY 11/19/2411/19 magnesium oxide 400 mg PO DAILY 11/19/24 mycophenolate sodium 180 mg 180 mg PO BID 11/19/24 tablet,delayed release prednisone 5 mg tablet 5 mg PO DAILY 11/19/2411/19 propranolol 10 mg tablet 10 mg PO BID 11/19/24 sulfamethoxazole 400 1 tab PO DAILY 11/19/2410/29 mg-trimethoprim 80 mg tablet (Bactrim) Held on 11/21/24. Instructions: Resume on 12/05/24. On hold, per you. tacrolimus 0.5 mg capsule, 0.5 mg PO Q12H 11/19/24 immediate-release (Prograf) tacrolimus 1 mg capsule, 2 mg PO Q12H 11/19/24 immediate-release (Prograf) valganciclovir 450 mg PO BID 11/19/2411/19 PHYSICAL EXAM AT DISCHARGE Vital Signs: Vital Signs x48h Temp Pulse Resp BP Pulse Ox 11/21/24 12:30 98.1 F 56 L 16 140/73 H 98 General Appearance: positive No acute distress and Alert; negative Anxious Eyes Bilateral: positive Normal inspection, PERRL and EOMI ENT: positive ENT inspection nml, Pharynx nml and No signs of dehydration Neck: positive Nml inspection, Thyroid nml and No JVD Respiratory: positive Chest non-tender, No respiratory distress and Breath sounds nml; negative Wheezes, Rales or Rhonchi Cardiovascular: positive Regular rate & rhythm, No murmur and No gallop; negative Tachycardia or Systolic murmur Abdomen: positive Non-tender, No organomegaly and No distention; negative Guarding or Splenomegaly Back: positive Nml inspection; negative CVA tenderness (R) or CVA tenderness (L) Skin: positive Color nml, No rash, Warm and Dry Extremities: positive Non-tender, Full ROM, Nml appearance and No pedal edema Neurologic/Psychiatric: positive Oriented x3, Motor nml and Mood/affect nml LABS 11/21/24 05:52 11/21/24 05:52 FOLLOW UP Follow Up: Follow up nephrology. Follow up PCP. TIME SPENT Time Spent in Discharge (Minutes): 35 Discharge Plan Discharge Patient Disposition: Home, Self Care Condition: Good Prescriptions: Continued tacrolimus [Prograf] 1 mg capsule 2 mg PO Q12H tacrolimus [Prograf] 0.5 mg capsule 0.5 mg PO Q12H prednisone 5 mg tablet 5 mg PO DAILY valganciclovir 450 mg PO BID famotidine 20 mg tablet 20 mg PO BID calcium citrate-vitamin D2 315 mg-200 unit tablet 1 tab PO BID citalopram [Celexa] 20 mg tablet 20 mg PO DAILY magnesium oxide 400 mg magnesium capsule 400 mg PO DAILY biotin 10,000 mcg capsule 10,000 mcg PO DAILY propranolol 10 mg tablet 10 mg PO BID folic acid 1 mg tablet 1 mg PO DAILY mycophenolate sodium 180 mg tablet,delayed release (DR/EC) 180 mg PO BID Held sulfamethoxazole-trimethoprim [Bactrim] 400-80 mg tablet 1 tab PO DAILY Hold Instructions: Resume on 12/05/24. On hold, per you. Health Concerns: You came in because you were having intractable nausea, vomiting, as well as diarrhea. You also had episodes where you got so dehydrated, that you were passing out. You likely have a viral gastroenteritis. This appears to be improving based on your numbers; your infection numbers that were high when you first got here, have now normalized. Your stool is also getting more formed, and less in quantity. As you have a transplanted kidney, we were worried about your kidney numbers, as they were elevated. This was likely due to the dehydration. However, they have returned to your normal with IVF! At home, please continue to eat as tolerated, and please continue to stay hydrated. Please continue close follow-up with your kidney doctor, as well as your primary care provider. Thank you for allowing us to take care of you. We are glad you're feeling better. Print Language: Serbian Patient Instructions: ED Diarrhea, Viral (Adult) Stand Alone Forms: PCP List Vitals documented within 30 minutes of discharge?: Yes
[2024-11-21 14:32] VITALS: BP 140/73; TEMP 98.1; O2SAT 98
== END 2024-11-21 12:45 | disposition home or self-care (01) | DRG 392 ==
LOC: EDSEX → MS3 03:38 → ED 03:38 → MS3 17:13
PROVIDERS: ADMIT Internal Medicine; ATTEND Internal Medicine